=== PATIENT | male | born 1990 | race Caucasian/White ===

== ENCOUNTER 2025-06-03 11:33 | Emergency (ER) | payer BC ==
[~2025-06-03] VITALS: Ht 175.3 cm; Wt 110.8 kg
--- NOTE | 2025-06-03 12:15 | ELECTROCARDIOGRAPH REPORT ---
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 Stephen Niño Measurements Intervals [place] Rate: 84 P: 43 AK: 122 QRS: 73 QRSD: 87 T: 1 QT: 348 QTc: 412 Interpretive Statements Sinus rhythm Borderline repolarization abnormality Electronically Signed On 06-03-2025 19:43:[address] Stephen Niño Please click the below link to view image of tracing.
[2025-06-03 15:09] VITALS: BP 134/94; PULSE 101; RESP 16; TEMP 98.5; O2SAT 98
--- NOTE | 2025-06-03 15:12 | Physician Documentation ---
History of Present Illness ~ Chief Complaint: Chest Wall Pain Stated Complaint: CHEST WALL PAIN Time Seen by MD: 14:19 OK to notify your PCP?: Yes Source: patient Mode of Arrival: POV Exam Limitations: no limitations HPI 34-year-old male presents with an episode of bilateral chest pain along the sternum. He states that this occurred about a month ago and resolved but he has started moving up his belongings today and this occurred again. He does not have any shortness of breath with exercise or shortness of breath at all. He states that it is worse with a deep breath and palpation actually relieves the pain of the area. He currently is not experiencing any pain. He has no comorbidities. He had an exercise stress test done for his job 2 years ago which was completely normal. Allergies: Coded Allergies: No Known Allergies (Unverified , 06/03/25) Active Prescriptions See Medication Reconciliation Form. Review of Systems All Other Systems at this time: Reviewed and Negative Physical Exam Vital Signs: RN Vital Signs have been reviewed: Yes, Temperature: 98.6, Source: Oral, Heart Rate: 81, Respiratory Rate: 16, BP: 149/90, Pulse Oximetry: 99, Weight: 110.800 Oxygen Flow Rate: 0 Pulse Oximetry Reflects: adequate oxygenation Physical Exam General: Alert, no apparent distress. HEENT: PERRL, EOMI, no injection, moist mucous membranes. Neck: Full range of motion. Respiratory: Lungs clear, no respiratory distress. Chest: No accessory muscle use. No tenderness to palpation along costochondral joints. Cardiovascular: Regular rate and rhythm, no murmurs. Gastrointestinal: Soft, nontender, nondistended. Bowels sounds present. Extremities: Normal range of motion, no deformity. Neurologic: Oriented x4. Psychiatric: Normal mood and affect. Skin: Normal color, warm and dry. No edema, no ecchymosis. Progress Results/Orders Reviewed/noted all lab results: Yes Results/Orders Vital Signs 06/03/25 12:06 Temp 98.6 Pulse 81 Resp 16 B/P (MAP) 149/90 Pulse Ox 99 O2 Flow Rate 0 EKG/XRAY/CT/US/VASC/MRI EKG : Additional Comment Electrocardiogram: as interpreted by me; normal sinus rhythm, no axis deviation, no acute ischemia, normal intervals, no pre-excitation pattern. Heart Score: Heart Score Response (Comments) Value History N/A 0 EKG Normal 0 Age <45 0 Risk Factors No known risk factors 0 Troponin N/A 0 Total 0 Medical Decision Making Additional info obtained from: family Findings 34-year-old male with normal EKG that experienced some bilateral sternal chest pain after he was moving some heavy items. He states that this occurred about a month ago and self-resolved. He states that the pain felt better if he put pressure on it. He has not taken any medications for his pain. Does not have any comorbidities I am not worried about an TN at this time. This is m usculoskeletal in nature according to his physical exam and history. He has no tenderness to palpation at this time and is currently not experiencing any pain.. Differential Dx:Considerations: Include: Chest wall contusion, Flail chest, Pneumothorax, Rib fracture, Tension pneumothorax Additional Comment TN Departure Disposition: 01 HOME / SELF CARE / HOMELESS Impression: Primary Impression: Costochondritis Condition: Stable Discharge Instructions: Costochondritis Additional Instructions: Take ibuprofen 400 mg 3 times daily for 5 days straight. Or you can try [place] anni gel 3 times daily for 5 days straight to help pain and inflammation. Follow up with your primary care provider within next week and return back here for any new or worsening symptoms. Referrals: NO PRIMARY CARE PROVIDER (PCP) Education Educated: Patient, Family Educated regarding: diagnosis, treatment, prognosis, need for follow up Additional Comment Medical Screen Exam This patient recieved a medical screening examination. After reviewing the individual's medical complaints with presenting symptoms and performing an appropriate physical examination, it was determined that no immediate life- threatening emergency medical condition is present. This individual is also not a women having contractions. Signature Scribe Signature: . Attestation: Scribed for Muriel Meza by Muriel Hussein NP . 06/03/25 15:11 Parts of this note were created using [employer] voice recognition software program. While efforts were made to correct any mistakes made by this voice recognition software program, nonsensical phrases may remain in this note. In addition, there may be errors and syntax, grammar, content and spelling. MURIEL MEZA Jun 03, 2025 15:12
== END 2025-06-03 15:14 | disposition home or self-care (01) ==
LOC: ER 11:34
DX: M94.0 Chondrocostal junction syndrome [Tietze] (principal)
CPT/HCPCS: 93005; 99283

== ENCOUNTER → 2025-10-06 | Emergency (ER) | payer BC ==
[~2025-10-06] VITALS: Ht 177.8 cm; Wt 113.6 kg
--- NOTE | 2025-10-06 20:56 | ELECTROCARDIOGRAPH REPORT ---
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 WINIFRED Montanez Measurements Intervals [place] Rate: 114 P: 70 ID: [id number] QRS: 80 QRSD: 89 T: 2 QT: 354 QTc: 488 Interpretive Statements Sinus tachycardia Consider right atrial enlargement Borderline repolarization abnormality Borderline prolonged QT interval Electronically Signed On 10-08-2025 9:36:[address] WINIFRED Montanez Please click the below link to view image of tracing.
--- NOTE | 2025-10-06 21:15 | Physician Documentation ---
History of Present Illness ~ Chief Complaint: Rapid Heartbeat Stated Complaint: FAST HEART RATE Time Seen by MD: 20:47 HPI This is a very pleasant 35-year-old gentleman who presents for evaluation of palpitations earlier today. He states that he was with a his , laying down, when he stood up he experienced this sensation of pounding heart rate with the chest discomfort radiating his left arm. Lasted approximately a minute. Resolved spontaneously. No palliating or aggravating factors. Did not attempt to treat it. This never happened in the past. He did noticed that his apple watch said that his heart rate was 160 at the time. He did not kept her with a one lead EKG at the moment of palpitations. He did kept him on shortly afterwards shows sinus tachycardic. No concern for tobacco, alcohol or illicit substances use Currently asymptomatic at the time of my examination and denies any chest pain, difficulty breathing, nausea, vomiting, diarrhea, abdominal pain Medication Reconciliation Allergies: Coded Allergies: No Known Allergies (Unverified , 06/03/25) Review of Systems ROS 10 point review of systems was performed and unless noted above in HPI is negative for acute process/complaint. Physical Exam Vital Signs: Temperature: 97.3, Source: Temporal, Heart Rate: 110, Respiratory Rate: 16, BP: 148/97, Pulse Oximetry: 98, Weight: 113.600 Physical Exam GENERAL: Awake, alert, oriented, GCS 15, no apparent distress, non-toxic appearing, answers questions, follows commands appropriately. Examined in bed 9., accompanied by significant other HEENT: Atraumatic, normocephalic, pupils equal, extraocular muscles intact, sclerae anicteric, mucus membranes dry, oropharynx is clear, no stridor. NECK: supple, full active range of motion, trachea midline, no thyromegaly, no lymphadenopathy, no JVD. CARDIOVASCULAR: Tachycardic and regular rate/rhythm, no murmurs/gallops/rubs, Pulses are 2+ in all extremities and symmetric. Capillary refill less than 2 seconds. PULMONARY: Nonlabored, good air movement ,no respiratory distress, speaking in full sentences, clear to auscultation bilaterally, no wheezing, no ronchi, no rales, no accessory muscle use. GASTROINTESTINAL: Soft, non-tender, non-distended, normal active bowel sounds, no organomegaly, no pulsatile masses, no CVA tenderness. NEUROLOGIC: Lucid with normal mental status. Normal facial symmetry. Moves all extremities symmetrically and with purpose. No truncal ataxia. Speech is fluid without evidence of dysarthria or aphasia, no focal deficits appreciated. MUSCULOSKELETAL: There is full range of motion of all extremities. There is no joint pain or joint swelling or joint erythema. There is no muscle pain or tenderness or swelling. EXTREMITIES: warm, well-perfused, no cyanosis, no clubbing, no edema, no acute deformities. Skin: warm, dry, no rashes or lesions, no jaundice, no petechiae orpurpura. No ecchymosis. PSYCHIATRIC: Normal affect, normal insight, normal concentration. Focused exam: [] Progress Results/Orders Results/Orders Orders - JUAN JOSE DURHAM DO Chest,Single View (10/06/25 20:54) Monitor (10/06/25 20:54) Saline Lock (10/06/25 20:54) Oxygen (10/06/25 20:54) Cbc/Diff (10/06/25 20:54) BMP (10/06/25 20:54) PBNP (10/06/25 20:54) Hs Troponin I W Calculations (10/06/25 20:54) Hs Troponin I W Calculations (10/06/25 22:54) Hs Troponin I W Calculations (10/06/25 23:54) TSH (10/06/25 20:59) Free T4 (10/06/25 20:59) Completed Orders - JUAN JOSE DURHAM DO Chest,Single View (10/06/25 20:54) Electrocardiogram (10/06/25 20:54) Vital Signs 10/06/25 20:00 Temp 97.3 Pulse 110 Resp 16 B/P (MAP) 148/97 Pulse Ox 98 Medical Decision Making Additional information obtaine: family Findings Facility Status: ED Holds, [facility] process The plan was discussed with the patient, who demonstrates clear understanding of the plan and is in agreement with the plan unless otherwise noted in the chart. All questions have been answered, all concerns were addressed unless otherwise documented. I was available throughout their ED stay for frequent reassessment and questions. Differential Diagnoses (considered and possible or likely): [SVT versus sinus tachycardic, less likely AFib, less likely atrial flutter, less likely ventricular arrhythmia. Etiology could be idiopathic versus orthostatic versus dehydration, electrolyte derangement had also been considerably.] ??Differential Diagnoses (considered and unlikely, not requiring evaluation currently): [See above] MDM Data Please see HPI for the following: Independent Historians and external Records Review. Historian: [Patient] Independent Historians: ?[Family] Medication Management: [Reviewed medication list] Social History and determinants: [Reviewed] Please see the body of the note for the following: Any independent interpretations of ECG, imaging studies. All vitals signs/haemodynamics, ordered tests were independently reviewed and interpreted by myself. 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 reviewed and interpreted by me] Additionally notably showing: [] Tests considered but not ordered include: [Advanced imaging including echocar diogram can be done on an outpatient basis] Social Determinants of Health Impact: Patient was evaluated in [facility], or [facility] [place] to healthcare due to below par ratio of patient to medical providers. [] Comorbid Conditions Impacting Present Evaluation and Care/Treatment: Chronic chest pain Management Discussions with other Healthcare Providers: [] Treatment and Disposition Medication Management (Given or considered): [Fluid resuscitation was provided for treatment of clinically and/or laboratory apparent dehydration.]. See EMR for details Consideration for Hospitalization/Escalation/Deescalation of Care: Admission for observation has been considered, [however the patient is able to tolerate p.o., their symptoms are controlled, they are able to rely on oral medications, and their chief complaint/diagnosis can be managed on outpatient basis.] ?ED Course:?[] ?Shared decision making:?[] Code status:?FULL Please see the full Electronic Medical Record for full details of nursing documentation, medications list, other records of complete past medical history and conditions, vital signs, laboratory studies, and any radiologic study interpretations by radiologists. Portions of this note were completed using [employer] software and as a result there may exist minor errors in spelling. I have reviewed elements of past family and social history and agree as included in note. Departure Referrals: NO PRIMARY CARE PROVIDER (PCP) Signature Scribe Signature: No scribe Attestation: The note accurately reflects work and decisions made by me.Juan Jose Durham, 10/06/25 21:15 JUAN JOSE DURHAM DO Oct 06, 2025 21:15
--- NOTE | 2025-10-06 21:15 | RADIOLOGY REPORT ---
EXAM: DI CHEST,SINGLE VIEW HISTORY: CP TECHNIQUE: 1 view of the chest COMPARISON: None FINDINGS/IMPRESSION: LUNGS: No pleural effusion, consolidation, or pneumothorax. MEDIASTINUM: Unremarkable. BONES: No acute osseous abnormality. OTHER: None.
[2025-10-06 21:41] LABS: MEAN PLATELET VOLUME 8.1 FL (7.4-10.4); RED CELL DISTRIBUTION WIDTH 13.4 % (11.5-14.5)
[2025-10-06] MEDS: normal saline 1000ml 1,000 ML IV ONE (21:45)
[2025-10-06 21:57] VITALS: BP 126/85; PULSE 97; RESP 12; TEMP 97.3; O2SAT 97
[2025-10-07 02:36] LABS: CREATININE 0.93 MG/DL (0.60-1.10); PRO BRAIN NATRIURETIC PEPTIDE < 30 PG/ML (0-125); TOTAL CARBON DIOXIDE 24.9 MMOL/L (24-32); eCRCL 114 ML/MIN; eGFR > 90 ML/MIN
== END | disposition home or self-care (01) ==
LOC: ER 19:56
DX: R00.2 Palpitations (principal); R06.02 Shortness of breath
CPT/HCPCS: 36415; 71045; 80048; 83880; 84439; 84443; 84484; 85025; 93005; 96360; 99285; J7030